=== PATIENT | female | born 1985 | race Caucasian/White ===

== ENCOUNTER 2020-12-02 17:50 | Observation (INO) ==
[2020-12-02 18:52] LABS: Bacteria,Urine Few per hpf (None-Few); Bilirubin,Urine Negative (Negative); Blood,Urine Negative (Negative); Clarity,Urine Clear (Clear); Color,Urine Light-Yellow (Yellow); Glucose,Urine (UA) 70 mg/dL (Normal); Ketones,Urine Negative (Negative); Leukocyte Esterase,Urine Negative (Negative); Mucus,Urine Few per lpf (None-Few); Nitrite,Urine Negative (Negative); Protein,Urine Negative (Neg-Trace); RBC,Urine 0-3 per hpf (0-3); Specific Gravity,Urine 1.011 (1.010-1.025); Squamous Epithelial Cell,Urine Few per hpf (None-Few); Urobilinogen,Urine Normal (Normal); WBC,Urine 0-3 per hpf (0-3)
[2020-12-02 19:47] LABS: Candida DNA Not Detected (Not Detect); Gardnerella DNA Not Detected (Not Detect); Trichomonas DNA Not Detected (Not Detect)
== END 2020-12-02 19:15 | disposition home or self-care (01) ==
LOC: 1NENULAB
PROVIDERS: ADMIT Obstetrics & Gynecology; ATTEND Obstetrics & Gynecology

== ENCOUNTER 2020-12-18 15:48 | Observation (INO) ==
[2020-12-18 17:27] LABS: Bilirubin,Urine Negative (Negative); Blood,Urine Negative (Negative); Clarity,Urine Clear (Clear); Color,Urine Light-Yellow (Yellow); Glucose,Urine (UA) Normal (Normal); Ketones,Urine Negative (Negative); Leukocyte Esterase,Urine Negative (Negative); Nitrite,Urine Negative (Negative); PH,Urine 6.5 pH Units (5.0-8.0); Protein,Urine Trace mg/dL (Neg-Trace); Specific Gravity,Urine 1.014 (1.010-1.025); Urobilinogen,Urine Normal (Normal)
== END 2020-12-18 18:07 | disposition home or self-care (01) ==
LOC: 1NENULAB
PROVIDERS: ADMIT Student in an Organized Health Care Education/Training Program; ATTEND Student in an Organized Health Care Education/Training Program

== ENCOUNTER 2021-01-22 14:37 | Inpatient (IN) ==
[2021-01-22 09:53] LABS: Bacteria,Urine Few per hpf (None-Few); Bilirubin,Urine Negative (Negative); Blood,Urine Trace (Negative); Clarity,Urine Clear (Clear); Color,Urine Light-Yellow (Yellow); Glucose,Urine (UA) Normal (Normal); Ketones,Urine Negative (Negative); Leukocyte Esterase,Urine Negative (Negative); Nitrite,Urine Negative (Negative); PH,Urine 6.5 pH Units (5.0-8.0); Protein,Urine Trace mg/dL (Neg-Trace); Specific Gravity,Urine 1.012 (1.010-1.025); Squamous Epithelial Cell,Urine Few per hpf (None-Few); Urobilinogen,Urine Normal (Normal); WBC,Urine 0-3 per hpf (0-3)
[~2021-01-22 14:37] MED LIST: *HR* Nalbuphine 10 MG/ML AMPUL IV PRN; Clindamycin 900 MG/50 ML 900 MG/50 ML IV.SOLN IVPB ONE; Famotidine 20 MG/2 ML VIAL IVP ONE; Metoclopramide 10 MG/2 ML VIAL IVP ONE; Oxytocin 20 units/ LR 1000 mL 20 UNIT/1,000 ML BAG IVC ONE; Ringers Solution, Lactated 1,000 ML IVC ONE; Ringers Solution, Lactated 1,000 ML IVC SCH
[2021-01-22] MEDS ORDERED: *HR* HYDROmorphone PF 0.5 MG/0.5 ML SYRINGE IVP PRN (14:44)
[2021-01-22] MEDS ORDERED: *HR* OxyCODONE Immed Rel 5 MG TABLET PO PRN (14:44)
[2021-01-22] MEDS ORDERED: Ondansetron 4 MG/2 ML VIAL IVP PRN ×2 (14:44→20:57)
[2021-01-22] MEDS ORDERED: Oxytocin 20 units/ LR 1000 mL 20 UNIT/1,000 ML BAG IVC SCH ×2 (14:45→20:57)
[2021-01-22] MEDS ORDERED: Ringers Solution, Lactated 1,000 ML IVC SCH (14:45)
[2021-01-22] MEDS ORDERED: *HR* FentaNYL (PF) 100 MCG/2 ML VIAL ONE (15:04)
[2021-01-22] MEDS ORDERED: *HR* Morphine Sulfate/PF 10 MG/10 ML AMPUL ONE (15:04)
[2021-01-22] MEDS ORDERED: EPHEDrine 50 MG/ML VIAL ONE (15:04)
[2021-01-22] MEDS ORDERED: Ketorolac 30 MG/ML VIAL ONE (15:06)
[2021-01-22] MEDS ORDERED: Ondansetron 4 MG/2 ML VIAL ONE (15:06)
[2021-01-22 15:08] LABS: Basophils # 0.1 K/mcL (0.0-0.2); Basophils % 0.7 %; Eosinophils % 0.4 %; Hematocrit 38.5 % (35.3-44.9); Immature Granulocytes % 2.2 % (0-4); Lymphocytes # 1.9 K/mcL (0.6-4.6); Lymphocytes % 18.5 %; Mean Corpuscular HGB Conc 33.8 g/dL (31.6-35.5); Mean Corpuscular Hemoglobin 34.9 pg (28.0-33.3); Mean Corpuscular Volume 103.2 fL (83.0-100.0); Monocytes # 0.6 K/mcL (0.0-1.3); Neutrophils # 7.4 K/mcL (1.6-8.9); Platelet Count 210 K/mcL (140-400); Red Blood Count 3.73 M/mcL (3.82-4.97); Red Cell Distribution Width 13.2 % (11.5-14.5); Segmented Neutrophils % 72.2 %; White Blood Count 10.3 K/mcL (4.3-11.1)
[2021-01-22 16:08] LABS: Influenza A PCR Negative (Negative); Influenza B PCR Negative (Negative); Resp. Syncytial Virus PCR Negative (Negative)
[2021-01-22 16:12] LABS: SARS-CoV-2 by PCR (In House) Negative (Negative)
[2021-01-22] MEDS ORDERED: Acetaminophen IV 1,000 MG/100 ML BAG IVPB ONE (17:23)
[2021-01-22] MEDS ORDERED: Simethicone 80 MG TAB.CHEW PO PRN (20:57)
[2021-01-22] MEDS ORDERED: Metoclopramide 10 MG/2 ML VIAL IVP PRN (20:57)
[2021-01-22] MEDS: Acetaminophen 325 MG TABLET PO SCH (21:33)
[2021-01-22] MEDS: metroNIDAZOLE 500 MG TABLET PO SCH (21:34)
[2021-01-22] MEDS: Ibuprofen 600 MG TABLET PO SCH (21:34)
[2021-01-23] MEDS: Clindamycin 900 MG/50 ML 900 MG/50 ML IV.SOLN IVPB SCH ×3 (00:18→15:48)
[2021-01-23] MEDS: Acetaminophen 325 MG TABLET PO SCH ×4 (04:13→23:13)
[2021-01-23] MEDS: Ibuprofen 600 MG TABLET PO SCH ×4 (04:13→20:06)
[2021-01-23 05:16] LABS: Basophils % 0.1 %; Hematocrit 33.9 % (35.3-44.9); Hemoglobin 11.6 g/dL (11.5-15.4); Immature Granulocytes % 0.9 % (0-4); Lymphocytes # 1.8 K/mcL (0.6-4.6); Lymphocytes % 12.2 %; Mean Corpuscular HGB Conc 34.2 g/dL (31.6-35.5); Mean Corpuscular Hemoglobin 35.4 pg (28.0-33.3); Mean Corpuscular Volume 103.4 fL (83.0-100.0); Mean Platelet Volume 10.7 fL (9.4-12.4); Monocytes # 0.6 K/mcL (0.0-1.3); Monocytes % 4.3 %; Platelet Count 186 K/mcL (140-400); Red Blood Count 3.28 M/mcL (3.82-4.97); Red Cell Distribution Width 13.2 % (11.5-14.5); Segmented Neutrophils % 82.5 %; White Blood Count 14.6 K/mcL (4.3-11.1)
[2021-01-23] MEDS: metroNIDAZOLE 500 MG TABLET PO SCH ×3 (08:07→20:06)
[2021-01-23] MEDS: Prenatal Vit/FA 1 EACH TABLET PO SCH (08:07)
[2021-01-23] MEDS ORDERED: NON-FORMULARY MEDICATION 1 EACH EACH (Prenatal Tablet 1 TAB) PO SCH (09:00)
[2021-01-24] MEDS: Ibuprofen 600 MG TABLET PO SCH ×4 (02:19→21:43)
[2021-01-24] MEDS: Acetaminophen 325 MG TABLET PO SCH ×4 (05:18→23:41)
[2021-01-24] MEDS: Prenatal Vit/FA 1 EACH TABLET PO SCH (10:03)
[2021-01-24] MEDS: metroNIDAZOLE 500 MG TABLET PO SCH ×2 (10:03→14:49)
[2021-01-24] MEDS: *HR* OxyCODONE Immed Rel 5 MG TABLET PO PRN (19:23)
[2021-01-25] MEDS: *HR* OxyCODONE Immed Rel 5 MG TABLET PO PRN (01:10)
[2021-01-25] MEDS: Ibuprofen 600 MG TABLET PO SCH (05:25)
[2021-01-25] MEDS: Prenatal Vit/FA 1 EACH TABLET PO SCH (07:50)
[2021-01-25] MEDS: Acetaminophen 325 MG TABLET PO SCH (07:54)
[2021-01-25 08:27] VITALS: BP 111/77; PULSE 80; TEMP 97.9; O2SAT 98
== END 2021-01-25 11:10 | disposition home or self-care (01) | DRG 539 ==
LOC: 1NENULAB → 1NENUOBS 20:34
PROVIDERS: ADMIT Obstetrics & Gynecology; ATTEND Obstetrics & Gynecology